=== PATIENT | female | born 1980 | race Caucasian/White ===

== ENCOUNTER 2016-07-16 20:04 | Inpatient (IN) | payer MEDICAID ==
[2016-07-16] MEDS ORDERED: Calcium Carbonate CHEW TAB* 500 MG (TUMS) ONE (20:40)
[2016-07-16] MEDS: Calcium Carbonate CHEW TAB* 500 MG (TUMS) PO PRN ×2 (20:42→23:40)
[2016-07-16] MEDS ORDERED: OBEPIDURAL* 250 ML ONE (23:42)
[2016-07-16 23:44] LABS: Hematocrit 43 % (35-47); Hemoglobin 14.2 g/dl (12.0-16.0); Mean Corpuscular HGB Conc 33 g/dl (31-36); Mean Corpuscular Hemoglobin 26 pg (27-31); Mean Corpuscular Volume 80 fL (80-97); Mean Platelet Volume 9 um3 (7.4-10.4); Red Blood Count 5.41 10^6/ul (4.0-5.4); Red Cell Distribution Width 16 % (10.5-15); White Blood Count 13.9 10^3/ul (3.5-10.8)
[2016-07-17] MEDS ORDERED: Phenylephrine IV* 40 MCG/ML 10 ML SYRINGE IV PUSH PRN ×2 (01:14)
[2016-07-17] MEDS ORDERED: Famotidine TAB* 20 MG PO PRN (01:14)
[2016-07-17] MEDS ORDERED: Sodium Citrate/Citric Acid* 15 ML UDC PO PRN (01:14)
[2016-07-17] MEDS ORDERED: OBEPIDURAL* 250 ML EPIDURAL SCH (02:00)
[2016-07-17] MEDS ORDERED: oxyCODONE/Acetamin 5/325 MG* TAB PO PRN (03:40)
[2016-07-17] MEDS ORDERED: Witch Hazel PAD* JAR TOPICAL PRN (03:40)
[2016-07-17] MEDS ORDERED: Dibucaine 1% 28.35 GM TUBE PR PRN (03:40)
[2016-07-17] MEDS ORDERED: Acetaminophen TAB* 325 MG PO PRN (03:40)
[2016-07-17] MEDS ORDERED: Glycerin ADULT SUPP PR PRN (03:40)
[2016-07-17] MEDS ORDERED: Ammonia Inhalant* 1 EA AMP ONE (05:05)
[2016-07-17] MEDS ORDERED: Simethicone CHEW TAB* 80 MG PO SCH (08:30)
[2016-07-17] MEDS: Docusate CAP* 100 MG PO SCH ×3 (10:04→20:09)
[2016-07-17] MEDS: Ibuprofen TAB* 600 MG PO PRN ×2 (10:04→16:03)
[2016-07-18] MEDS: Ibuprofen TAB* 600 MG PO PRN ×2 (03:35→09:35)
[2016-07-18 07:05] LABS: Hematocrit 39 % (35-47); Hemoglobin 12.7 g/dl (12.0-16.0); Mean Corpuscular HGB Conc 33 g/dl (31-36); Mean Corpuscular Hemoglobin 27 pg (27-31); Mean Corpuscular Volume 80 fL (80-97); Mean Platelet Volume 9 um3 (7.4-10.4); Red Cell Distribution Width 16 % (10.5-15); White Blood Count 13.7 10^3/ul (3.5-10.8)
[2016-07-18 08:02] VITALS: BP 132/82
[2016-07-18] MEDS ORDERED: Ferrous Gluconate TAB* 324 MG TAB PO SCH (09:00)
[2016-07-18] MEDS: Docusate CAP* 100 MG PO SCH (09:34)
== END 2016-07-18 10:51 | disposition home or self-care (01) | DRG 560 ==
LOC: MCHOBOUT 20:04 → MCHOB 22:49
PROVIDERS: ADMIT Midwife; ATTEND Midwife
PROC: 10E0XZZ Delivery of Products of Conception, External Approach (ICD-10-PCS; principal; 2016-07-17)
PROC: 10907ZC Drainage of Amniotic Fluid, Therapeutic from Products of Conception, Via Natural or Artificial Opening (ICD-10-PCS; 2016-07-17)
DX: O69.81X0 Labor and delivery complicated by cord around neck, without compression, not applicable or unspecified (principal); Z68.41 Body mass index [BMI] 40.0-44.9, adult; O99.214 Obesity complicating childbirth; E66.01 Morbid (severe) obesity due to excess calories; Z3A.40 40 weeks gestation of pregnancy; Z37.0 Single live birth
CPT/HCPCS: 36415; 85025; 86850; 86900; 86901; A9270-GY